=== PATIENT | female | born 1955 | race Two or more races ===

== ENCOUNTER 2025-03-23 10:03 | Observation (INO) | payer MEDICARE, MEDICAID ==
[~2025-03-23] VITALS: Ht 157.5 cm; Wt 68.0 kg
--- NOTE | 2025-03-23 10:48 | ED.PDOC ---
History of Present Illness HPI Comments 69F presents to the ER in a wheelchair w/ no prior MHx associated to the c/c of a fall. Pt reports on being in the bathroom and waking up to the floor w/ a 1.5cm lac on the right side of the forehead. The pt states on only having 1 syncope episode. Pt notes on the fall being unwitnessed. Denies chills, fever, N/V/D, SOB, CP. Denies any other associated symptom's, modifiers, or recent injuries or sick contact at this time. Chief Complaint: Fall Injury Time Seen by MD: 10:45 Reviewed Notes: Nurses Notes, Medications, Allergies Allergies: Coded Allergies: Penicillins (Verified Allergy, Unknown, 03/23/25) Information Source: Patient Mode of Arrival: Wheelchair Severity: Moderate Timing: Minutes Duration: Since onset, Minutes Prehospital treatment: None Past Medical History PAST MEDICAL HISTORY: Denies Surgical History: Denies all surgeries DISPLAY MANAGER History: No Pertinent DISPLAY MANAGER History Family History Family History: Reviewed,noncontributory to illness, Unknown Social History Smoker: Non-Smoker Alcohol: Denies ETOH Use Drugs: Denies Drug Use Lives In: Home Constitutional: denies: chills, diaphoresis, fatigue, fever, malaise, sweats, weakness, others EENTM: denies: blurred vision, double vision, ear bleeding, ear discharge, ear drainage, ear pain, ear ringing, eye pain, eye redness, hearing loss, mouth pain, mouth swelling, nasal discharge, nose bleeding, nose congestion, nose pain, photophobia, tearing, throat pain, throat swelling, voice changes, others Respiratory: denies: cough, hemoptysis, orthopnea, SOB at rest, shortness of breath, SOB with excertion, stridor, wheezing, others Cardiovascular: reports: syncope; denies: chest pain, dizzy spells, diaphoresis, Dyspnea on exertion, edema, irregular heart beat, left arm pain, lightheadedness, palpitations, PND, others Gastrointestinal: denies: abdomen distended, abdominal pain, blood streaked bowels, constipated, diarrhea, dysphagia, difficulty swallowing, hematemesis, melena, nausea, poor appetite, poor fluid intake, rectal bleeding, rectal pain, vomiting, others Genitourinary: denies: abnormal vagina bleeding, burning, dyspareunia, dysuria, flank pain, frequency, hematuria, incontinence, pain, , vagina discharge, urgency, others Neurological: denies: dizziness, fainting, headache, left sided numbness, left sided weakness, numbness, paresthesia, pre-existing deficit, right sided numbness, right sided weakness, seizure, speech problems, tingling, tremors, weakness, others Musculoskeletal: denies: back pain, gout, joint pain, joint swelling, muscle pain, muscle stiffness, neck pain, others Integumetry: denies: bruises, change in color, change in hair/nails, dryness, laceration, lesions, lumps, rash, wounds, others Allergic/Immunocompromised: denies: Difficulty Healing, Frequent Infections, Hives, Itching, others Hematologic/Lymphatic: denies: anemia, blood clots, easy bleeding, easy bruising, swollen glands, others Endocrine: denies: excessive hunger, excessive sweating, excessive thirst, excessive urination, flushing, intolerance to cold, intolerance to heat, unexplained weight gain, unexplained weight loss, others Psychiatric: denies: anxiety, bipolar disorder, depression, hopeless, panic disorder, schizophrenia, sleepless, suicidal, others All Other Systems: Reviewed and Negative Physical Exam General Appearance: No Apparent Distress, Normal HEENT: Normal ENT Inspection, Pharynx Normal, TMs Normal Neck: Full Range of Motion, Non-Tender, Normal, Normal Inspection Respiratory: Chest Non-Tender, Lungs Clear, No Accessory Muscle Use, No Respiratory Distress, Normal Breath Sounds Cardiovascular: No Edema, No JVD, No Murmur, No Gallop, Normal Peripheral Pulses, Regular Rate/Rhythm Breast Exam: Deferred Gastrointestinal: No Organomegaly, Non Tender, No Pulsatile Mass, Normal Bowel Sounds, Soft Genitalia: Deferred Pelvic: Deferred Rectal: Deferred Extremities: No calf tenderness, Normal capillary refill, Normal inspection, Normal range of motion, Non-tender, No pedal edema Musculoskeletal : Apperance: Normal Neurologic: Alert, cloth bolt bander II-XII nml as Tested, No Motor Deficits, Normal Affect, Normal Mood, No Sensory Deficits Cerebellar Function: Normal Reflexes: Normal Skin: Dry, Normal Color, Warm Lymphatic: No Adenopathy Was a procedure done? Was a procedure done?: Yes Sedation Sedation?: No Laceration Repair : Location Forehead Length 2 cm Anesthetic: Lidocaine Laceration Repair Prep: Saline Laceration Repair Wound Comple: epidermis/dermis repair Laceration Repair: Number of sutures, Size (4), Nylon Informed consent obtained: Yes Risks, benefits, and alternati: Yes EKG EKG : Pulse Rate (adult): 80 [place]: Normal Cardiac Rhythm: NSR Block: None Hypertrophy: None ST: Normal Differential Dx Considerations may include: ACS, CVA , viral syndrome, electrolyte abnormality, cardiac arrhythmia X-Ray, Labs, Meds, VS Vital Signs Date Time Temp Pulse Resp B/P (MAP) Pulse Ox O2 Delivery O2 Flow Rate FiO2 03/23/25 15:04 85 16 98 Room Air* 0 21 03/23/25 15:04 85 16 148/84 (105) 98 03/23/25 12:42 76 18 148/87 (107) 95 03/23/25 10:48 80 03/23/25 10:16 80 03/23/25 10:06 97.4 89 20 159/91 96 97.4 Lab Test 03/23/25 13:35 03/23/25 11:50 03/23/25 10:46 Range/Units Troponin I High Sensitivity 3 L 5 3 L </=34 ng/L White Blood Count 9.9 4.4-10.8 10^3/uL Red Blood Count 4.75 4.0-5.20 10^6/uL Hemoglobin 15.1 12.2-16.2 g/dL Hematocrit 44.4 36.0-46.0 % Mean Corpuscular Volume 93.4 80.0-100.0 fL Mean Corpuscular Hemoglobin 31.7 28.0-32.0 pg Mean Corpuscular Hemoglobin Concent 33.9 32.0-36.0 g/dL Red Cell Distribution Width 13.4 11.8-14.3 % Platelet Count 295 140-450 10^3/uL Mean Platelet Volume 7.4 6.9-10.8 fL Neutrophils (%) (Auto) 74.4 37.0-80.0 % Lymphocytes (%) (Auto) 19.2 10.0-50.0 % Monocytes (%) (Auto) 5.0 0.0-12.0 % Eosinophils (%) (Auto) 0.9 0.0-7.0 % Basophils (%) (Auto) 0.5 0.0-2.0 % Neutrophils # (Auto) 7.4 1.6-8.6 10 ^3/uL Lymphocytes # (Auto) 1.9 0.4-5.4 10 ^3/uL Monocytes # (Auto) 0.5 0-1.3 10 ^3/uL Eosinophils # (Auto) 0.1 0-0.8 10 ^3/uL Basophils # (Auto) 0 0-0.2 10 ^3/uL Nucleated Red Blood Cells 0.1 % Prothrombin Time 10.0 9.3-11.8 sec Prothrombin Time INR 0.94 0.9-1.15 Activated Partial Thromboplast Time 30.2 24.5-34.5 SEC Sodium Level 142 136-145 mmol/L Potassium Level 4.2 3.5-5.1 mmol/L Chloride Level 104 98-107 mmol/L Carbon Dioxide Level 25 20-31 mmol/L Anion Gap 13 5-15 Blood Urea Nitrogen 21 9-23 mg/dL Creatinine 0.75 0.550-1.02 mg/dL Glomerular Filtration Rate Calc 87 >90 mL/min BUN/Creatinine Ratio 28.0 H 10.0-20.0 Serum Glucose 145 H 74-106 mg/dL Calcium Level 9.9 8.7-10.4 mg/dL [place] [address] Ph: [phone] DIAGNOSTIC IMAGING Diagnostic Imaging Report : [id number] Signed PATIENT: JUAN VALDEZ ACCT: [id number] UNIT: [id number] : 1955 LOC: ER ROOM / BED: / AGE / SEX: 69 / F ADM STATUS: REG ER SERVICE 1029 ORDERING PHYSICIAN: THEA ESTRADA MD PROCEDURE(s): CXRP - CHEST PORTABLE REASON: syncope ORDER NUMBER(s): [id number], ACCESSION NUMBER(s): [id number] Procedure: XY CHEST PORTABLE History: syncope Comparison: None Technique: Single view of the chest. Findings: The lung parenchyma is clear. No pleural effusion. Cardiac silhouette is mildly enlarged. Impression: 1. No acute cardiopulmonary disease. ATED BY: HELADIO NUÑEZ MD DICTATED DATE/TIME: 03/23/251058 SIGNED BY: HELADIO NUÑEZ MD SIGNED DATE/TIME: 03/23/251058 CC: [place] [address] Ph: [phone] DIAGNOSTIC IMAGING Diagnostic Imaging Report : [id number] Signed PATIENT: JUAN VALDEZ ACCT: [id number] UNIT: [id number] : 1955 LOC: ER ROOM / BED: / AGE / SEX: 69 / F ADM STATUS: REG ER SERVICE 102 ORDERING PHYSICIAN: THEA ESTRADA MD PROCEDURE(s): HWOCT - HEAD WITHOUT CONTRAST REASON: syncope ORDER NUMBER(s): [id number], ACCESSION NUMBER(s): [id number] EXAM: CT HEAD WITHOUT CONTRAST INDICATION: syncope TECHNIQUE: CT of the head without intravenous contrast. Radiation Dose Information: CT Dose: CTDI volume is 55.7 mGy. Dose-length product is 1207.41 mGy*cm The dose indicators for CT are the volume Computed Tomography (CT) Dose Index (CTDIvol) and the Dose Length Product (DLP), and are measured in units of mGy and mGy-cm, respectively. These indicators are not patient dose, but values generated from the CT scanner acquisition factors. The report includes radiation exposure data for exposures received during this examination. COMPARISON: None FINDINGS: There is no evidence of acute intracranial hemorrhage, extra-axial collection, mass effect, midline shift, herniation or hydrocephalus. The ventricles, sulci and cisterns are age appropriate. The hutchinson-white differentiation is intact. Remote infarct within the right ash. Remote bilateral basal ganglia infarcts versus prominent perivascular spaces. Patchy periventricular and subcortical white matter hypoattenuation is nonspecific but may be related to small vessel ischemic disease. The visualized paranasal sinuses and mastoid air cells are clear. Right frontal scalp swelling. No underlying fracture. IMPRESSION: No acute intracranial abnormality. ATED BY: ARCELIA DENNIS MD DICTATED DATE/TIME: 03/23/25 1100 SIGNED BY: ARCELIA DENNIS MD SIGNED DATE/TIME: 03/23/25 1100 CC: Images Reviewed?: Images reviewed and evaluated by me Time of 1ST Reevaluation: 11:15 Reevaluation 1ST: Unchanged Patient Education/Counseling: Diagnosis, Treatment, Prognosis Family Education/Counseling: No Family Present SEPSIS Sepsis Screen Date sepsis recognized/suspect: Mar 23, 2025 Time Sepsis recognized/suspect: 1009 Recent Procedure: No On Antibiotic Therapy: No Respiratory Rate >20: No Heart Rate >90: Yes Temp<36 C (96.8 F) or >38.3 C: No SBP <90 or MAP <65 mmHG: No New Acute Mental Status Change: No Is the patient on CPAP, BIPAP,: No Physician Orders Electrocardigram (03/23/25 10:23) Head Without Contrast (03/23/25 10:29) Urinalysis (03/23/25 10:29) Chest Portable (03/23/25 10:29) Admit (03/23/25:26) Code Status (03/23/25:) 2 Gm Sodium Diet (03/23/25 Dinner) Sodium Chloride 0.9% (03/23/25 17:30) Hydrocodone-Acet 5/325mg Tab ([place] 5/32 (03/23/25 17:30) Ondansetron Hcl (Zofran) (03/23/25 17:30) Docusate Sodium Capsule (Colace Capsule) (03/23/25 17:30) Complete Blood Count (03/24/25 04:00) Comprehensive Metabolic Panel (03/24/25 04:00) Echo 2d Mode Cardiac Dop (03/23/25:26) Condition: Fair (03/23/25:) Acetaminophen Tablet (Tylenol Tablet) (03/23/25 17:30) Enoxaparin Sodium (Lovenox) (03/24/25 10:00) Nitroglycerin Sublingual (Ntrostat Subli (03/23/25 17:30) Stat Ekg For Chest Pain (03/23/25:) Notify Of Changes From Base (03/23/25 17:) Cyber Crime Investigator For 24 Hours (03/23/25:26) Emergency Dysrhythmia Protocol (03/23/25:26) Rhythm Strips Once Every Shift (03/23/25:26) Oxygen By Nasal Cannula (03/23/25 17:26) *Consult Dr. Arnel Wilhelm (03/23/25 17:32) Morphine Sulfate Injection (03/23/25 17:45) Morphine Sulfate Injection (03/23/25 17:45) Vital Signs Date Time Temp Pulse Resp B/P (MAP) Pulse Ox O2 Delivery O2 Flow Rate FiO2 03/23/25 15:04 85 16 98 Room Air* 0 21 03/23/25 15:04 85 16 148/84 (105) 98 03/23/25 12:42 76 18 148/87 (107) 95 03/23/25 10:48 80 03/23/25 10:16 80 03/23/25 10:06 97.4 89 20 159/91 96 97.4 Laboratory Tests Test 03/23/25 10:46 White Blood Count 9.9 10^3/uL (4.4-10.8) Departure 1 Departure Time of Disposition: 17:58 (Patient presented with syncope today and should be admitted. Data: 1. I ordered and reviewed the result of at least 3 labs including a CBC, BMP, and troponin. 2. I independently interpreted the following tests: EKG which shows a sinus arrhythmia _ and a chest x-ray which shows benign chest and a CT head which shows benign brain.Risk:This patient has a high risk of morbidity due to further diagnostic testing or treatment and may suffer from an acute cardiac, neurologic, or infectious disorder. Rationale: Patient should be admitted to the hospital for further management.) Impression: Primary Impression: Syncope and collapse Additional Impression: Facial laceration Disposition: ADMITTED INPATIENT Admit to: Tele Condition: Serious Critical Care Note Critical Care Time?: Yes Critical care comment: Syncope concern for CVA Authorized and Performed by: Thea Estrada MD Total critical care time: Approximately 38 minutes Due to a high probability of clinically significant, life threatening deterioration, the patient required my highest level of preparedness to intervene emergently and I personally spent this critical care time directly and personally managing the patient. This critical care time included obtaining a history; examining the patient; pulse oximetry; ordering and review of studies; arranging urgent treatment with development of a management plan; evaluation of patient's response to treatment; frequent reassessment; and, discussions with other providers. This critical care time was performed to assess and manage the high probability of imminent, life-threatening deterioration that could result in multi-organ failure. It was exclusive of separately billable procedures and treating other patients and teaching time. Please see my other sections and the rest of the note for further information on patient assessment and treatment. Stability Stability form required: No I personally scribed for THEA ESTRADA MD ([email or web address]) on 03/23/25 at 10:48. Electronically submitted by Skinny Valles ([email or web address]). I personally scribed for THEA ESTRADA MD ([email or web address]) on 03/23/25 at 11:37. Electronically submitted by Rylan Westbrook ([email or web address]). THEA ESTRADA MD Mar 23, 2025 10:48
[2025-03-23 10:55] LABS: Hematocrit 44.4 % (36.0-46.0); Hemoglobin 15.1 g/dL (12.2-16.2); Mean Corpuscular Hemoglobin 31.7 pg (28.0-32.0); Mean Corpuscular Volume 93.4 fL (80.0-100.0); Nucleated Red Blood Cells % 0.1 %
--- NOTE | 2025-03-23 11:01 | DVH ---
Procedure: XY CHEST PORTABLE History: syncope Comparison: None Technique: Single view of the chest. Findings: The lung parenchyma is clear. No pleural effusion. Cardiac silhouette is mildly enlarged. Impression: 1. No acute cardiopulmonary disease.
--- NOTE | 2025-03-23 11:02 | DVH ---
EXAM: CT HEAD WITHOUT CONTRAST INDICATION: syncope TECHNIQUE: CT of the head without intravenous contrast. Radiation Dose Information: CT Dose: CTDI volume is 55.7 mGy. Dose-length product is 1207.41 mGy*cm The dose indicators for CT are the volume Computed Tomography (CT) Dose Index (CTDIvol) and the Dose Length Product (DLP), and are measured in units of mGy and mGy-cm, respectively. These indicators are not patient dose, but values generated from the CT scanner acquisition factors. The report includes radiation exposure data for exposures received during this examination. COMPARISON: None FINDINGS: There is no evidence of acute intracranial hemorrhage, extra-axial collection, mass effect, midline s hift, herniation or hydrocephalus. The ventricles, sulci and cisterns are age appropriate. The hutchinson-white differentiation is intact. Remote infarct within the right ash. Remote bilateral basa l ganglia infarcts versus prominent perivascular spaces. Patchy periventricular and subcortical white matter hypoattenuation is nonspecific but may be related to small vessel ischemic disease. The visualized paranasal sinuses and mastoid air cells are clear. Right frontal scalp swelling. No underlying fracture. IMPRESSION: No acute intracranial abnormality.
[2025-03-23 11:06] LABS: Chloride 104 mmol/L (98-107); Potassium 4.2 mmol/L (3.5-5.1); Sodium 142 mmol/L (136-145)
[2025-03-23 11:07] LABS: Anion Gap 13 (5-15); Calcium 9.9 mg/dL (8.7-10.4); Carbon Dioxide 25 mmol/L (20-31)
[2025-03-23 11:12] LABS: BUN/Creatinine Ratio 28.0 (10.0-20.0); Blood Urea Nitrogen 21 mg/dL (9-23); Glucose 145 mg/dL (74-106); INR 0.94 (0.9-1.15); Partial Thromboplastin Time 30.2 SEC (24.5-34.5); Prothrombin Time 10.0 sec (9.3-11.8)
[2025-03-23 15:04] VITALS: PULSE 85; RESP 16; O2SAT 98
[2025-03-23] MEDS ORDERED: DOCUSATE SOD 100 MG CAP PO PRN (17:30)
[2025-03-23] MEDS ORDERED: HYDROcodone-ACET 5/325MG TAB PO PRN (17:30)
[2025-03-23] MEDS ORDERED: ACETAMINOPHEN 325 MG TAB PO PRN (17:30)
[2025-03-23] MEDS ORDERED: NITROGLYCERIN 0.4 MG SL TAB SL PRN (17:30)
--- NOTE | 2025-03-23 17:32 | DVHHP2 ---
Allergies: Coded Allergies: Penicillins (Verified Allergy, Unknown, 03/23/25) Vital Signs Vital Signs Date Time Temp Pulse Resp B/P (MAP) Pulse Ox O2 Delivery O2 Flow Rate FiO2 03/23/25 15:04 85 16 98 Room Air* 0 21 03/23/25 15:04 148/84 (105) 03/23/25 10:06 97.4 97.4 SEPSIS Sepsis Screen Date sepsis recognized/suspect: Mar 23, 2025 Time Sepsis recognized/suspect: 1510 Recent Procedure: No On Antibiotic Therapy: No Respiratory Rate >20: No Heart Rate >90: No Temp<36 C (96.8 F) or >38.3 C: No SBP <90 or MAP <65 mmHG: No New Acute Mental Status Change: No Is the patient on CPAP, BIPAP,: No Physician Orders Electrocardigram (03/23/25 10:23) Head Without Contrast (03/23/25 10:29) Urinalysis (03/23/25 10:29) Chest Portable (03/23/25 10:29) Admit (03/23/25 17:26) Code Status (03/23/25 17:26) 2 Gm Sodium Diet (03/23/25 Dinner) 0.9% Ns 1000 Ml (03/23/25 17:30) Hydrocodone-Acet 5/325mg Tab ([place] 32 (03/23/25 17:30) Ondansetron Hcl (Zofran) (03/23/25 17:30) Docusate Sodium Capsule (Colace Capsule) (03/23/25 17:30) Complete Blood Count (03/24/25 04:00) Comprehensive Metabolic Panel (03/24/25 04:00) Echo 2d Mode Cardiac Dop (03/23/25 17:26) Condition: Fair (03/23/25 17:26) Acetaminophen Tablet (Tylenol Tablet) (03/23/25 17:30) Vital Signs Date Time Temp Pulse Resp B/P (MAP) Pulse Ox O2 Delivery O2 Flow Rate FiO2 03/23/25 15:04 85 16 98 Room Air* 0 21 03/23/25 15:04 85 16 148/84 (105) 98 03/23/25 12:42 76 18 148/87 (107) 95 03/23/25 10:48 80 03/23/25 10:16 80 10/8/25 10:06 97.4 89 20 159/91 96 97.4 Laboratory Tests Test 03/23/25 10:46 White Blood Count 9.9 10^3/uL (4.4-10.8) Results Labs Test 03/23/25 13:35 03/23/25 10:46 Range/Units Troponin I High Sensitivity 3 L </=34 ng/L White Blood Count 9.9 4.4-10.8 10^3/uL Red Blood Count 4.75 4.0-5.20 10^6/uL Hemoglobin 15.1 12.2-16.2 g/dL Hematocrit 44.4 36.0-46.0 % Mean Corpuscular Volume 93.4 80.0-100.0 fL Mean Corpuscular Hemoglobin 31.7 28.0-32.0 pg Mean Corpuscular Hemoglobin Concent 33.9 32.0-36.0 g/dL Red Cell Distribution Width 13.4 11.8-14.3 % Platelet Count 295 140-450 10^3/uL Mean Platelet Volume 7.4 6.9-10.8 fL Neutrophils (%) (Auto) 74.4 37.0-80.0 % Lymphocytes (%) (Auto) 19.2 10.0-50.0 % Monocytes (%) (Auto) 5.0 0.0-12.0 % Eosinophils (%) (Auto) 0.9 0.0-7.0 % Basophils (%) (Auto) 0.5 0.0-2.0 % Neutrophils # (Auto) 7.4 1.6-8.6 10 ^3/uL Lymphocytes # (Auto) 1.9 0.4-5.4 10 ^3/uL Monocytes # (Auto) 0.5 0-1.3 10 ^3/uL Eosinophils # (Auto) 0.1 0-0.8 10 ^3/uL Basophils # (Auto) 0 0-0.2 10 ^3/uL Nucleated Red Blood Cells 0.1 % Prothrombin Time 10.0 9.3-11.8 sec Prothrombin Time INR 0.94 0.9-1.15 Activated Partial Thromboplast Time 30.2 24.5-34.5 SEC Sodium Level 142 136-145 mmol/L Potassium Level 4.2 3.5-5.1 mmol/L Chloride Level 104 98-107 mmol/L Carbon Dioxide Level 25 20-31 mmol/L Anion Gap 13 5-15 Blood Urea Nitrogen 21 9-23 mg/dL Creatinine 0.75 0.550-1.02 mg/dL Glomerular Filtration Rate Calc 87 >90 mL/min BUN/Creatinine Ratio 28.0 H 10.0-20.0 Serum Glucose 145 H 74-106 mg/dL Calcium Level 9.9 8.7-10.4 mg/dL MOO RICKETTS NP Mar 23, 2025 17:32
--- NOTE | 2025-03-23 17:37 | DVHHP2 ---
Admitting Diagnosis: Syncope History of Present Illness Gwendolyn Lewis experienced a syncopal episode, with her daughter suggesting a recently prescribed sleep aid may have contributed by causing weakness. Her medical history includes a recent stroke, diabetes, hypertension, and hyperlipidemia, with previous medication non-compliance. She recently enrolled at [facility] and lives with her daughter who provides support. Cardiovascular and respiratory exams were normal with no acute distress noted. Chief Complaint Syncopal episode Problem-Based History of Present Illness Syncope: Patient experienced a syncopal episode that prompted current admission. According to her daughter, the patient possibly felt very weak from a recently prescribed sleep aid medication, which may have contributed to the episode. Stroke: Patient states she had a stroke recently. She reports that previously she had not been compliant with her medications. Diabetes: Patient has a past medical history of diabetes. Hypertension: Patient has a past medical history of hypertension. Hyperlipidemia: Patient has a past medical history of hyperlipidemia. Medical History - Recent stroke - Diabetes - Hypertension - Hyperlipidemia Social History - Living Situation: Lives with daughter who provides support and advocacy for her care - Healthcare Setting: Currently new resident at [facility] Review of Systems General: Positive for weakness. Medications and Supplements - Sleep aid - Recently prescribed. Patient's daughter suspects patient possibly felt very weak from this medication. - Medications for stroke, diabetes, hypertension, and hyperlipidemia - Previously not compliant with medications. Focused Physical Exam: General: No acute distress. Cardiovascular: Heart rate and rhythm are normal. No murmurs, gallops, or rubs. Respiratory: No signs of respiratory distress. Past Medical History Diabetes CVA HTN HLD Past Surgical History not pertinent Family History Unknown Social History Smoker: Non-Smoker Alcohol: Denies ETOH Use Drugs: Denies Drug Use Lives In: Home Constitutional: denies: chills, diaphoresis, fatigue, fever, malaise, sweats, weakness, others EENTM: denies: blurred vision, double vision, ear bleeding, ear discharge, ear drainage, ear pain, ear ringing, eye pain, eye redness, hearing loss, mouth pain, mouth swelling, nasal discharge, nose bleeding, nose congestion, nose pain, photophobia, tearing, throat pain, throat swelling, voice changes, others Respiratory: denies: cough, hemoptysis, orthopnea, SOB at rest, shortness of breath, SOB with excertion, stridor, wheezing, others Cardiovascular: reports: syncope; denies: chest pain, dizzy spells, diaphoresis, Dyspnea on exertion, edema, irregular heart beat, left arm pain, lightheadedness, palpitations, PND, others Gastrointestinal: denies: abdomen distended, abdominal pain, blood streaked bowels, constipated, diarrhea, dysphagia, difficulty swallowing, hematemesis, melena, nausea, poor appetite, poor fluid intake, rectal bleeding, rectal pain, vomiting, others Genitourinary: denies: abnormal vagina bleeding, burning, dyspareunia, dysuria, flank pain, frequency, hematuria, incontinence, pain, , vagina discharge, urgency, others Neurological: denies: dizziness, fainting, headache, left sided numbness, left sided weakness, numbness, paresthesia, pre-existing deficit, right sided numbness, right sided weakness, seizure, speech problems, tingling, tremors, weakness, others Musculoskeletal: denies: back pain, gout, joint pain, joint swelling, muscle pain, muscle stiffness, neck pain, others Integumetry: denies: bruises, change in color, change in hair/nails, dryness, laceration, lesions, lumps, rash, wounds, others Allergic/Immunocompromised: denies: Difficulty Healing, Frequent Infections, Hives, Itching, others Hematologic/Lymphatic: denies: anemia, blood clots, easy bleeding, easy bruising, swollen glands, others Endocrine: denies: excessive hunger, excessive sweating, excessive thirst, excessive urination, flushing, intolerance to cold, intolerance to heat, unexplained weight gain, unexplained weight loss, others Psychiatric: denies: anxiety, bipolar disorder, depression, hopeless, panic disorder, schizophrenia, sleepless, suicidal, others All Other Systems: Reviewed and Negative Allergies: Coded Allergies: Penicillins (Verified Allergy, Unknown, 03/23/25) Allergies PCN Vital Signs Vital Signs Date Time Temp Pulse Resp B/P (MAP) Pulse Ox O2 Delivery O2 Flow Rate FiO2 03/23/25 15:04 85 16 98 Room Air* 0 21 03/23/25 15:04 148/84 (105) 03/23/25 10:06 97.4 97.4 SEPSIS Sepsis Screen Date sepsis recognized/suspect: Mar 23, 2025 Time Sepsis recognized/suspect: 1510 Recent Procedure: No On Antibiotic Therapy: No Respiratory Rate >20: No Heart Rate >90: No Temp<36 C (96.8 F) or >38.3 C: No SBP <90 or MAP <65 mmHG: No New Acute Mental Status Change: No Is the patient on CPAP, BIPAP,: No Physician Orders Electrocardigram (03/23/25 10:23) Head Without Contrast (03/23/25 10:29) Urinalysis (03/23/25 10:29) Chest Portable (03/23/25 10:29) Admit (03/23/25:) Code Status (03/23/25:) 2 Gm Sodium Diet (03/23/25 Dinner) 0.9% Ns 1000 Ml (03/23/25 17:30) Hydrocodone-Acet 5/325mg Tab ([place] (03/23/25 17:30) Ondansetron Hcl (Zofran) (03/23/25 17:30) Docusate Sodium Capsule (Colace Capsule) (03/23/25 17:30) Complete Blood Count (03/24/25 04:00) Comprehensive Metabolic Panel (03/24/25 04:00) Echo 2d Mode Cardiac Dop (03/23/25:) Condition: Fair (03/23/25:) Acetaminophen Tablet (Tylenol Tablet) (03/23/25 17:30) Vital Signs Date Time Temp Pulse Resp B/P (MAP) Pulse Ox O2 Delivery O2 Flow Rate FiO2 03/23/25 15:04 85 16 98 Room Air* 0 21 03/23/25 15:04 85 16 148/84 (105) 98 03/23/25 12:42 76 18 148/87 (107) 95 03/23/25 10:48 80 03/23/25 10:16 80 03/23/25 10:06 97.4 89 20 159/91 96 97.4 Laboratory Tests Test 03/23/25 10:46 White Blood Count 9.9 10^3/uL (4.4-10.8) Results Labs Test 03/23/25 13:35 03/23/25 10:46 Range/Units Troponin I High Sensitivity 3 L </=34 ng/L White Blood Count 9.9 4.4-10.8 10^3/uL Red Blood Count 4.75 4.0-5.20 10^6/uL Hemoglobin 15.1 12.2-16.2 g/dL Hematocrit 44.4 36.0-46.0 % Mean Corpuscular Volume 93.4 80.0-100.0 fL Mean Corpuscular Hemoglobin 31.7 28.0-32.0 pg Mean Corpuscular Hemoglobin Concent 33.9 32.0-36.0 g/dL Red Cell Distribution Width 13.4 11.8-14.3 % Platelet Count 295 140-450 10^3/uL Mean Platelet Volume 7.4 6.9-10.8 fL Neutrophils (%) (Auto) 74.4 37.0-80.0 % Lymphocytes (%) (Auto) 19.2 10.0-50.0 % Monocytes (%) (Auto) 5.0 0.0-12.0 % Eosinophils (%) (Auto) 0.9 0.0-7.0 % Basophils (%) (Auto) 0.5 0.0-2.0 % Neutrophils # (Auto) 7.4 1.6-8.6 10 ^3/uL Lymphocytes # (Auto) 1.9 0.4-5.4 10 ^3/uL Monocytes # (Auto) 0.5 0-1.3 10 ^3/uL Eosinophils # (Auto) 0.1 0-0.8 10 ^3/uL Basophils # (Auto) 0 0-0.2 10 ^3/uL Nucleated Red Blood Cells 0.1 % Prothrombin Time 10.0 9.3-11.8 sec Prothrombin Time INR 0.94 0.9-1.15 Activated Partial Thromboplast Time 30.2 24.5-34.5 SEC Sodium Level 142 136-145 mmol/L Potassium Level 4.2 3.5-5.1 mmol/L Chloride Level 104 98-107 mmol/L Carbon Dioxide Level 25 20-31 mmol/L Anion Gap 13 5-15 Blood Urea Nitrogen 21 9-23 mg/dL Creatinine 0.75 0.550-1.02 mg/dL Glomerular Filtration Rate Calc 87 >90 mL/min BUN/Creatinine Ratio 28.0 H 10.0-20.0 Serum Glucose 145 H 74-106 mg/dL Calcium Level 9.9 8.7-10.4 mg/dL Primary Diagnosis Vital Signs Date Time Temp Pulse Resp B/P (MAP) Pulse Ox O2 Delivery O2 Flow Rate FiO2 03/23/25 15:04 85 16 98 Room Air* 0 21 03/23/25 15:04 85 16 148/84 (105) 98 03/23/25 12:42 76 18 148/87 (107) 95 03/23/25 10:48 80 03/23/25 10:16 80 03/23/25 10:06 97.4 89 20 159/91 96 97.4 Lab Test 03/23/25 13:35 03/23/25 11:50 03/23/25 10:46 Range/Units Troponin I High Sensitivity 3 L 5 3 L </=34 ng/L White Blood Count 9.9 4.4-10.8 10^3/uL Red Blood Count 4.75 4.0-5.20 10^6/uL Hemoglobin 15.1 12.2-16.2 g/dL Hematocrit 44.4 36.0-46.0 % Mean Corpuscular Volume 93.4 80.0-100.0 fL Mean Corpuscular Hemoglobin 31.7 28.0-32.0 pg Mean Corpuscular Hemoglobin Concent 33.9 32.0-36.0 g/dL Red Cell Distribution Width 13.4 11.8-14.3 % Platelet Count 295 140-450 10^3/uL Mean Platelet Volume 7.4 6.9-10.8 fL Neutrophils (%) (Auto) 74.4 37.0-80.0 % Lymphocytes (%) (Auto) 19.2 10.0-50.0 % Monocytes (%) (Auto) 5.0 0.0-12.0 % Eosinophils (%) (Auto) 0.9 0.0-7.0 % Basophils (%) (Auto) 0.5 0.0-2.0 % Neutrophils # (Auto) 7.4 1.6-8.6 10 ^3/uL Lymphocytes # (Auto) 1.9 0.4-5.4 10 ^3/uL Monocytes # (Auto) 0.5 0-1.3 10 ^3/uL Eosinophils # (Auto) 0.1 0-0.8 10 ^3/uL Basophils # (Auto) 0 0-0.2 10 ^3/uL Nucleated Red Blood Cells 0.1 % Prothrombin Time 10.0 9.3-11.8 sec Prothrombin Time INR 0.94 0.9-1.15 Activated Partial Thromboplast Time 30.2 24.5-34.5 SEC Sodium Level 142 136-145 mmol/L Potassium Level 4.2 3.5-5.1 mmol/L Chloride Level 104 98-107 mmol/L Carbon Dioxide Level 25 20-31 mmol/L Anion Gap 13 5-15 Blood Urea Nitrogen 21 9-23 mg/dL Creatinine 0.75 0.550-1.02 mg/dL Glomerular Filtration Rate Calc 87 >90 mL/min BUN/Creatinine Ratio 28.0 H 10.0-20.0 Serum Glucose 145 H 74-106 mg/dL Calcium Level 9.9 8.7-10.4 mg/dL syncope Plan Plan will be to obtain orthostatic vitals. Rule out infection. Monitor on telemetry floor Echocardiogram. Cardiology consult. Plan discussed with: Daughter Code Visit Code Visit Total Time (mins): 45 MOO RICKETTS NP Mar 23, 2025 17:37
[2025-03-23] MEDS ORDERED: MORPHINE SULFATE 4 MG/ML SYR/VIAL IV PRN (17:45)
--- NOTE | 2025-03-23 18:33 | DVHINCON2 ---
Date of service: Mar 23, 2025 History of Present Illness HPI Patient is a 69-year-old female who presented to the hospital after syncopal episode. She mentions that she found herself on the floor of the bathroom. Does not recall what happened. Denies any symptoms/signs prior to the episode. Denies any chest pain/shortness of breath/dizziness/cold or warm feeling after the episode. She also mentions that she was started on a new medicine for sleep aid the night before (by her new PCP). Does not recall the name of the sleeping aid medicine. She mentions that she did have CVA in September 2024 for which was in rehab for around a month. Her comorbidities also include hypertension and hyperlipidemia. Reportedly, the patient has history of noncompliance. Cardiology is involved for cardiac aspects of care. While in emergency room, she had stitches to the right forehead. Past Medical History Others Past medical history includes hypertension, hyperlipidemia and history of CVA (in September 2024). Chart mentions history of diabetes mellitus but patient herself denies such a history. There is a reported history of noncompliance. She is morbidly obese. Smoker: No Hx (Negative) Lives with: With family Review of Systems Constitutional: No symptom reported Ears, Nose, & Throat: No symptom reported Eyes: No symptom reported Pulmonary/Respiratory: Cough Cardiovascular: No symptom reported All Other Systems Fourteen point review of system was performed. Relevant findings as per above and as per HPI. Otherwise negative. H&P Exam Vital Signs Vital Signs Date Time Temp Pulse Resp B/P (MAP) Pulse Ox O2 Delivery O2 Flow Rate FiO2 03/23/25 15:04 85 16 98 Room Air* 0 21 03/23/25 15:04 148/84 (105) 03/23/25 10:06 97.4 97.4 General Appeara: Obese Eye Exam: bilateral eye PERRL Pulmonary/Respiratory: Normal inspection Cardiovascular/Chest: Normal inspection, Regular rate Peripheral Pulses: 2+ carotid (R), 2+ carotid (L) Abdominal Exam: Normal bowel sounds, Soft Neuro/Mental St: Alert, Oriented Appearance: Appropriate appearance Eye contact/ Speech: Cooperative Labs/Xrays Labs Test 03/23/25 13:35 03/23/25 10:46 Range/Units Troponin I High Sensitivity 3 L </=34 ng/L White Blood Count 9.9 4.4-10.8 10^3/uL Red Blood Count 4.75 4.0-5.20 10^6/uL Hemoglobin 15.1 12.2-16.2 g/dL Hematocrit 44.4 36.0-46.0 % Mean Corpuscular Volume 93.4 80.0-100.0 fL Mean Corpuscular Hemoglobin 31.7 28.0-32.0 pg Mean Corpuscular Hemoglobin Concent 33.9 32.0-36.0 g/dL Red Cell Distribution Width 13.4 11.8-14.3 % Platelet Count 295 140-450 10^3/uL Mean Platelet Volume 7.4 6.9-10.8 fL Neutrophils (%) (Auto) 74.4 37.0-80.0 % Lymphocytes (%) (Auto) 19.2 10.0-50.0 % Monocytes (%) (Auto) 5.0 0.0-12.0 % Eosinophils (%) (Auto) 0.9 0.0-7.0 % Basophils (%) (Auto) 0.5 0.0-2.0 % Neutrophils # (Auto) 7.4 1.6-8.6 10 ^3/uL Lymphocytes # (Auto) 1.9 0.4-5.4 10 ^3/uL Monocytes # (Auto) 0.5 0-1.3 10 ^3/uL Eosinophils # (Auto) 0.1 0-0.8 10 ^3/uL Basophils # (Auto) 0 0-0.2 10 ^3/uL Nucleated Red Blood Cells 0.1 % Prothrombin Time 10.0 9.3-11.8 sec Prothrombin Time INR 0.94 0.9-1.15 Activated Partial Thromboplast Time 30.2 24.5-34.5 SEC Sodium Level 142 136-145 mmol/L Potassium Level 4.2 3.5-5.1 mmol/L Chloride Level 104 98-107 mmol/L Carbon Dioxide Level 25 20-31 mmol/L Anion Gap 13 5-15 Blood Urea Nitrogen 21 9-23 mg/dL Creatinine 0.75 0.550-1.02 mg/dL Glomerular Filtration Rate Calc 87 >90 mL/min BUN/Creatinine Ratio 28.0 H 10.0-20.0 Serum Glucose 145 H 74-106 mg/dL Calcium Level 9.9 8.7-10.4 mg/dL Assessment/Plan Plan Patient is a 69-year-old female who presented to the hospital after syncopal episode. She mentions that she found herself on the floor of the bathroom. Does not recall what happened. Denies any symptoms/signs prior to the episode. Denies any chest pain/shortness of breath/dizziness/cold or warm feeling after the episode. She also mentions that she was started on a new medicine for sleep aid the night before (by her new PCP). Does not recall the name of the sleeping aid medicine. She mentions that she did have CVA in September 2024 for which was in rehab for around a month. Her comorbidities also include hypertension and hyperlipidemia. Reportedly, the patient has history of noncompliance. Cardiology is involved for cardiac aspects of care. While in emergency room, she had stitches to the right forehead. Lying flat in bed and not in acute distress. Stitches in the right forehead is covered by dressing. Bruises to the forehead is seen. No JVD. Mucosa is pink and wet. No carotid bruit. No goiter. Not using accessory muscles of breathing. Lungs are clear to auscultation. Cardiac: Regular, no thrill/gall op. Abdomen is soft. There was no hepatomegaly/mass. Bowel sound is positive. Extremities do not reveal edema. Past medical history includes hypertension, hyperlipidemia and history of CVA (in September 2024). Chart mentions history of diabetes mellitus but patient herself denies such a history. There is a reported history of noncompliance. She is morbidly obese. Creatinine: 0.75 Potassium: 4.2 Troponin (high sensitive): 3 - 5 - 3 Chest x-ray revealed: Impression: 1. No acute cardiopulmonary disease. CT of the head revealed: IMPRESSION: No acute intracranial abnormality. EKG revealed sinus rhythm with nonspecific ST-T changes Tele reveals sinus rhythm Patient is a 69-year-old female who had an episode of loss of consciousness (found herself on the floor) with bruises to the forehead. Presentation is in favor of an episode of syncope. The patient was started on new sleeping aid the night before which could have contributed to the clinical picture. It is of note that the patient did have CVA few months back. Syncope Forehead laceration, status post stitches Hypertension Hyperlipidemia Status post CVA Morbidly obese Baseline poor functional capacity Cardiac suggestion for management: Manage on telemetry Follow-up electrolytes and kidney function tests and correct abnormalities Keep potassium above 4 and magnesium above 2 Request for echocardiogram Request for D-dimer, (if abnormal, consider venous Doppler lower extremities/CT angio of the lungs) Long-term monitor can be arranged as outpatient Consider Neurology evaluation Further evaluation and management depends on the above and clinical course Thank you for consultation A total of 75 minutes was spent reviewing the patient record, examining the patient, making a diagnostic and therapeutic plan, discussing this plan with medical personnel, following up on diagnostic studies and following the patient for clinical stability excluding any and all procedures. At least 50% of this time was spent in direct, [id number] contact. Thank you for allowing me to participate in this patient's care. Further recommendations will depend on patient's clinical course. Please do not hesitate to contact me if you have any questions or concerns. This medical document was created using electronic medical record system with [employer] computerized dictation system. Although this document has been carefully reviewed, there may still be some phonetic and typographical errors. These areas are purely typographical due to the imperfection of the software programs, and do not reflect any compromise in the patient's medical care. Plan discussed with: Patient, Other (nurse) GISELE ALMONTE MD Mar 23, 2025 18:33
[2025-03-23] MEDS: SODIUM CHLORIDE 0.9% 1,000 ML IV SCH (19:16)
[2025-03-23 19:28] LABS: Urine Protein, UAD Negative (Negative)
[2025-03-23 21:17] VITALS: BP 143/83; PULSE 89; RESP 16; TEMP 97.7; O2SAT 95
[2025-03-23 21:30] VITALS: BP 143/83; PULSE 89; RESP 16; TEMP 97.7; O2SAT 95
[2025-03-23] MEDS: MORPHINE SULFATE 4 MG/ML SYR/VIAL IV PRN (22:47)
[2025-03-24] VITALS (8 sets, daily range): BP systolic 139–167; BP diastolic 69–92; PULSE 68–97; RESP 16–19; TEMP 36.9; O2SAT 90–94
[2025-03-24 06:48] LABS: Hematocrit 38.6 % (36.0-46.0); Hemoglobin 13.2 g/dL (12.2-16.2); Mean Corpuscular Hemoglobin 31.9 pg (28.0-32.0); Mean Corpuscular Volume 93.3 fL (80.0-100.0); Nucleated Red Blood Cells % 0.1 %
[2025-03-24 06:56] LABS: Alanine Aminotransferase 20 U/L (7-40); Alkaline Phosphatase 99 U/L (46-116); Anion Gap 11 (5-15); BUN/Creatinine Ratio 16.7 (10.0-20.0); Calcium 9.2 mg/dL (8.7-10.4); Carbon Dioxide 26 mmol/L (20-31); Chloride 103 mmol/L (98-107); Potassium 3.8 mmol/L (3.5-5.1); Sodium 140 mmol/L (136-145); Total Protein 7.0 g/dL (5.7-8.2)
[2025-03-24 06:57] LABS: Albumin 4.1 g/dL (3.2-4.8); Bilirubin, Total 0.7 mg/dL (0.2-1.0)
[2025-03-24 06:58] LABS: Blood Urea Nitrogen 9 mg/dL (9-23); Glucose 134 mg/dL (74-106)
--- NOTE | 2025-03-24 07:47 | DVHPN2 ---
Progress Note - Dictate Date Seen: Mar 24, 2025 Medical Necessity Reason Pt with a Central, PICC or Fol: No vital signs Vital Sign Date Time Temp Pulse Resp B/P (MAP) Pulse Ox O2 Delivery O2 Flow Rate FiO2 03/24/25 05:00 98.1 96 16 144/77 (99) 90 98.1 03/23/25 21:17 Room Air* 0 21 Total Intake and Output 03/23/25 03/23/25 03/24/25 15:00 23:00 07:00 Intake Total 0 ml Balance 0 ml medications Current Medications Medications Dose Ordered Sig/Veronica Route Start Time Stop Time Status Last Admin Dose Admin Sodium Chloride 1,000 ml @ 60 mls/hr [id number] IV 03/23/25 17:30 03/23/25 19:16 60 MLS/HR Acetaminophen/ Hydrocodone Bitart 1 tab Q4HP PRN PO 03/23/25 17:30 Ondansetron HCl 4 mg Q4HP PRN IV 03/23/25 17:30 Docusate Sodium 100 mg BIDPRN PRN PO 03/23/25 17:30 Acetaminophen 650 mg Q6HP PRN PO 03/23/25 17:30 Morphine Sulfate 2 mg Q4HPRN PRN IV 03/23/25 17:45 03/24/25 03:14 2 MG Enoxaparin Sodium 40 mg DAILY SC 03/24/25 10:00 Nitroglycerin 0.4 mg Q5MINP PRN SL 03/23/25 17:30 Morphine Sulfate 2 mg Q30M PRN IV 03/23/25 17:45 laboratory and microbiology Laboratory Tests 03/24/25 04:58 Test 03/24/25 04:58 Range/Units Serum Glucose 134 H 74-106 mg/dL Assessment/Plan Patient is a 69-year-old female who presented to the hospital after syncopal episode. She mentions that she found herself on the floor of the bathroom. Does not recall what happened. Denies any symptoms/signs prior to the episode. Denies any chest pain/shortness of breath/dizziness/cold or warm feeling after the episode. She also mentions that she was started on a new medicine for sleep aid the night before (by her new PCP). Does not recall the name of the sleeping aid medicine. She mentions that she did have CVA in September 2024 for which was in rehab for around a month. Her comorbidities also include hypertension and hyperlipidemia. Reportedly, the patient has history of noncompliance. Cardiology is involved for cardiac aspects of care. While in emergency room, she had stitches to the right forehead. Lying flat in bed and not in acute distress. Stitches in the right forehead is covered by dressing. Bruises to the forehead is seen. No JVD. Mucosa is pink and wet. No carotid bruit. No goiter. Not using accessory muscles of breathing. Lungs are clear to auscultation. Cardiac: Regular, no thrill/gallop. Abdomen is soft. There was no hepatomegaly/mass. Bowel sound is positive. Extremities do not reveal edema. Gross left HP is observed. Past medical history includes hypertension, hyperlipidemia and history of CVA (in September 2024) with left HP. Chart mentions history of diabetes mellitus but patient herself denies such a history. There is a reported history of noncompliance. She is morbidly obese. Creatinine: 0.75 - 0.54 Potassium: 4.2 - 3.8 Troponin (high sensitive): 3 - 5 - 3 D-Dimer: 6.19 Chest x-ray revealed: Impression: 1. No acute cardiopulmonary disease. CT of the head revealed: IMPRESSION: No acute intracranial abnormality. EKG revealed sinus rhythm with nonspecific ST-T changes Tele reveals sinus rhythm Patient is a 69-year-old female who had an episode of loss of consciousness (found herself on the floor) with bruises to the forehead. Presentation is in favor of an episode of syncope. The patient was started on new sleeping aid the night before which could have contributed to the clinical picture. It is of note that the patient did have CVA few months back. Found to have increased D- Dimer Syncope Forehead laceration, status post stitches Hypertension Hyperlipidemia Status post CVA Morbidly obese Baseline poor functional capacity Cardiac suggestion for management: Manage on telemetry Follow-up electrolytes and kidney function tests and correct abnormalities Keep potassium above 4 and magnesium above 2 Awaiting echocardiogram Venous Doppler lower extremities CT angio of the lungs Long-term monitor can be arranged as outpatient Consider Neurology evaluation Further evaluation and management depends on the above and clinical course A total of 55 minutes was spent reviewing the patient record, examining the patient, making a diagnostic and therapeutic plan, discussing this plan with medical personnel, following up on diagnostic studies and following the patient for clinical stability excluding any and all procedures. At least 50% of this time was spent in direct, [id number] contact. Thank you for allowing me to participate in this patient's care. Further recommendations will depend on patient's clinical course. Please do not hesitate to contact me if you have any questions or concerns. This medical document was created using electronic medical record system with [employer] computerized dictation system. Although this document has been carefully reviewed, there may still be some phonetic and typographical errors. These areas are purely typographical due to the imperfection of the software programs, and do not reflect any compromise in the patient's medical care. Plan discussed with: Patient, Other (nurse) GISELE ALMONTE MD Mar 24, 2025 07:47
[2025-03-24] MEDS: ENOXAPARIN SOD 40 MG/0.4 ML SYRINGE SC SCH (08:52)
[2025-03-24] MEDS: ONDANSETRON HCL 4 MG/2 ML VIAL IV PRN (09:44)
--- NOTE | 2025-03-24 10:26 | DVHDS2 ---
Discharge Summary Date of Admission Mar 23, 2025 at 17:26 Date of Discharge: Mar 24, 2025 Admitting Diagnosis Syncope Diabetes, type 2 Hypertension Labs/Diagnostic Data: Laboratory Results Test 03/24/25 04:58 03/23/25 19:01 03/23/25 18:33 03/23/25 13:35 White Blood Count 8.7 10^3/uL (4.4-10.8) Red Blood Count 4.14 10^6/uL (4.0-5.20) Hemoglobin 13.2 g/dL (12.2-16.2) Hematocrit 38.6 % (36.0-46.0) Mean Corpuscular Volume 93.3 fL (80.0-100.0) Mean Corpuscular Hemoglobin 31.9 pg (28.0-32.0) Mean Corpuscular Hemoglobin Concent 34.3 g/dL (32.0-36.0) Red Cell Distribution Width 13.4 % (11.8-14.3) Platelet Count 263 10^3/uL (140-450) Mean Platelet Volume 7.8 fL (6.9-10.8) Neutrophils (%) (Auto) 69.1 % (37.0-80.0) Lymphocytes (%) (Auto) 22.3 % (10.0-50.0) Monocytes (%) (Auto) 6.6 % (0.0-12.0) Eosinophils (%) (Auto) 1.6 % (0.0-7.0) Basophils (%) (Auto) 0.4 % (0.0-2.0) Neutrophils # (Auto) 6.0 10 ^3/uL (1.6-8.6) Lymphocytes # (Auto) 2.0 10 ^3/uL (0.4-5.4) Monocytes # (Auto) 0.6 10 ^3/uL (0-1.3) Eosinophils # (Auto) 0.1 10 ^3/uL (0-0.8) Basophils # (Auto) 0 10 ^3/uL (0-0.2) Nucleated Red Blood Cells 0.1 % Sodium Level 140 mmol/L (136-145) Potassium Level 3.8 mmol/L (3.5-5.1) Chloride Level 103 mmol/L (98-107) Carbon Dioxide Level 26 mmol/L (20-31) Anion Gap 11 (5-15) Blood Urea Nitrogen 9 mg/dL (9-23) Creatinine 0.54 mg/dL (0.550-1.02) Glomerular Filtration Rate Calc 101 mL/min (>90) BUN/Creatinine Ratio 16.7 (10.0-20.0) Serum Glucose 134 mg/dL (74-106) Calcium Level 9.2 mg/dL (8.7-10.4) Total Bilirubin 0.7 mg/dL (0.2-1.0) Aspartate Amino Transferase (AST) 14 U/L (13-40) Alanine Aminotransferase (ALT) 20 U/L (7-40) Alkaline Phosphatase 99 U/L (46-116) Total Protein 7.0 g/dL (5.7-8.2) Albumin 4.1 g/dL (3.2-4.8) Urine Color Light-yellow (Yellow) Urine Clarity Clear (Clear) Urine pH 6.5 (5.0-9.0) Urine Specific [place] 1.008 (1.001-1.035) Urine Protein Negative (Negative) Urine Ketones Negative (Negative) Urine Blood Negative /uL (Negative) Urine Nitrite Negative (Negative) Urine Bilirubin Negative (Negative) Urine Urobilinogen Normal mg/dL (Negative) Urine Leukocyte Esterase Negative /uL (Negative) Urine RBC <1 /hpf (0 - 4) Urine Microscopic WBC < 1 /HPF (0-5) Urine Squamous Epithelial Cells Few /hpf (<5) Urine Bacteria Few /hpf (None Seen) Urine Glucose Normal mg/dL (Normal) D-Dimer, Quantitative 6.19 mg/L FEU (0.0-0.49) Troponin I High Sensitivity 3 ng/L (</=34) Test 03/23/25 10:46 Prothrombin Time 10.0 sec (9.3-11.8) Prothrombin Time INR 0.94 (0.9-1.15) Activated Partial Thromboplast Time 30.2 SEC (24.5-34.5) Other Laboratory Tests 03/24/25 04:58 Brief Hx & Hospital Course: Gwendolyn Lewis, a 69-year-old female with history of stroke, diabetes, hypertension, and hyperlipidemia, presented with a syncopal episode. Her daughter suspected the episode was related to weakness from a recently prescribed sleep aid. The patient acknowledged previous medication non- compliance. She was admitted overnight for evaluation with plans for echocardiogram, orthostatic vitals, hemoglobin A1c, insulin sliding scale, and lipid panel. Gwendolyn Lewis is a 69-year-old female with history of stroke, diabetes, hypertension, and hyperlipidemia presenting with syncopal episode, possibly related to recently prescribed sleep aid. Syncope Assessment: Patient experienced syncopal episode with daughter suspecting possible weakness from recently prescribed sleep aid. Patient has history of stroke and previous medication non-compliance. Given cardiac risk factors including diabetes, hypertension, and hyperlipidemia, cardiac etiology requires evaluation. Plan: - Admit overnight for syncope-Monitor EKG - Order echocardiogram- Ejection fraction was preserved with no valvular disease - Obtain orthostatic vitals-Vitals were stable Diabetes mellitus Assessment: Patient has established diabetes with history of medication non- compliance. Plan: - Order hemoglobin A1c - Insulin sliding scale Hyperlipidemia Assessment: Patient has established hyperlipidemia requiring monitoring. Plan: - Order lipid panel Hypertension Assessment: Patient has established hypertension. Plan:Continue home blood pressure medication's Patient was admitted and observed. Echocardiogram was done. Patient was seen by cardiology. Patient was started on home blood pressure medication. Orthostatic vitals were taken. Patient was related to noncompliance with medication's. Patient was apparently taking sleep aids that were previously discontinued by her [facility]. Condition at Discharge: Good Final Diagnosis/Problems List Syncope Diabetes, type 2 Hypertension Discharge Disposition: Home SNF Discharge Will this Physician continue t: No Discharge Instruct/Medications Diet: Cardiac 2g Na,low cholest Activity: No Restrictions, As Tolerated Follow Up/Referral: pcp No Active Prescriptions or Reported Meds 30 Discharge Statement: "Patient was advised to return to the ER or call 911 if any headaches, dizziness, shortness of breath, chest pain, abdominal pain, bleeding, fevers, or worsening of medical condition. Patient was counseled about treatment plan, medications, possible side effects, patientverbalized understanding. All questions were answered to the best of my ability. This discharge took greater then 30 minutes in planning, reviewing documentation, counseling the patient, and discussing with other team members." ASSESSMENT ASSESSMENT Hospital Course Patient was admitted for sinkable episode. Orthostatic vitals were taken. Patient was seen in evaluated by cardiology. Echocardiogram was done. Syncopal episode was related to sleeping aids that were reportedly discontinued by provider. However, patient had taken them and had side effects from medication. Patient was informed that the medication was discontinued and she was instructed to follow up with her primary care provider in one week. Assessment MOO RICKETTS NP Mar 24, 2025 10:26
--- NOTE | 2025-03-24 11:30 | DVH ---
Bilateral lower extremity venous duplex Clinical History: edema Comparison: None Findings: Duplex Doppler evaluation of the deep venous systems of both lower extremities from the common femora l veins to the popliteal veins including color Doppler and spectral/pulsed waveform analysis was perf ormed. RIGHT SIDE: The common femoral vein demonstrates appropriate compressibility and waveform variability. There is compressibility/patency of the great saphenous vein at the proximal thigh. The femoral vein demonstrates appropriate compressibility and waveform variability. The deep femoral vein demonstrates appropriate compressibility and waveform variability. The popliteal vein demonstrates appropriate compressibility and waveform variability. There is normal compressibility at the tibioperoneal trunk. LEFT SIDE: The common femoral vein demonstrates appropriate compressibility and waveform variability. There is compressibility/patency of the great saphenous vein at the proximal thigh. The femoral vein demonstrates appropriate compressibility and waveform variability. The deep femoral vein demonstrates appropriate compressibility and waveform variability. The popliteal vein demonstrates appropriate compressibility and waveform variability. There is normal compressibility at the tibioperoneal trunk. IMPRESSION: No right or left femoropopliteal venous thrombosis. If clinical concern/symptoms persist or worsen, short-interval follow-up study is suggested. END IMPRESSION:
[2025-03-24] MEDS ORDERED: IOHEXOL 350 MG/ML 100ML IJ ONE (13:43)
--- NOTE | 2025-03-24 14:21 | DVH ---
EXAM: CT CT ANGIO CHEST CONTRAST HISTORY: POSSIBLE PE TECHNIQUE: CT angiogram was performed. CT scans at this facility use dose modulation, iterative recon struction, and/or weight based dosing when appropriate to reduce radiation dose to as low as reasonab ly achievable. Coronal and sagittal reformations and maximum intensity projection images were created from the transaxial source data by the anesthesiology technologist and workstation, as well as 3-D volume render ed images with MIPs. COMPARISON: None FINDINGS: [LOWER NECK]: Unremarkable [LYMPH NODES/MEDIASTINUM]: No abnormal lymph nodes by CT size criteria [CARDIOVASCULAR]: Normal cardiac size. No pericardial effusion. No aneurysmal dilatation of the great vessels. No significant coronary artery calcifications. [PULMONARY ARTERIES]: No pulmonary arterial filling defect. Normal caliber of the main pulmonary megahan ry. No evidence of elevated right heart pressures. [UPPER ABDOMEN]: Unremarkable. [MUSCULOSKELETAL]: No acute fracture or aggressive focal osseous lesion. Multilevel degenerative sheridan ge of the visualized spine. [CHEST WALL]: Unremarkable. [LUNG PARENCHYMA/PLEURAL SPACE]: Decreased lung volumes No pleural effusion or pneumothorax. atelecta sis in bilateral lung bases. No bronchiectasis IMPRESSION: 1. No CTA evidence of pulmonary embolism.
--- NOTE | 2025-03-24 19:03 | DVHSR ---
APPROVED REPORT EXAM: Two-dimensional and M-mode echocardiogram with Doppler and color Doppler. Blood Pressure: 144/77 mmHg INDICATION Syncope RISK FACTORS Height: 5'2", Weight: 149 DIMENSIONS LVDd4.4 (3.8-5.7cm)LA (2D) (1.9-4.0cm)Aortic Root (2.0-3.7cm) LVDs2.6 (2.5-4.0cm)LA (MM) (1.9-4.0cm)Aortic Cusp Exc (1.5-2.0cm) EF (%) 72.0 (55-70%)Rt. Atrium (1.9-4.0cm)Asc. Aorta cm IVSd0.8 (0.7-1.1cm)RV (D) (1.8-2.4cm) Mitral Valve MitralMitral Stenosis E/A ratio0.02D MVAcm2 Other Information Quality : Technically LimitedRhythm : Technically limited study due to body habitus and pt position. Conclusion Technically limited study secondary to poor acoustic windows. Left ventricle: Left ventricle was normal-sized with normal systolic function. LVEF was around 55%. There was no gross wall motion abnormality. Right ventricle was normal-sized with normal systolic function. Both atria were normal-sized. Aortic valve was trileaflet. There was no aortic insufficiency/stenosis. There was mild tricuspid a nd mitral regurgitation. Pulmonary valve was not well visualized. As there was no good tricuspid regurgitation jet, right ventricular systolic pressure could not be es timated. There was no echocardiographic evidence for pulmonary hypertension. IVC was normal-sized with normal respiratory variation.
--- NOTE | 2025-03-28 09:43 | ECG ---
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
== END 2025-03-24 20:04 | disposition home or self-care (01) ==
LOC: ER 10:03 → OVERFLOW 17:26 → INTOOBSV 17:26 → TELE-CENTR 21:03
PROVIDERS: ADMIT Nurse Practitioner; ATTEND Nurse Practitioner
DX: S01.81XA Laceration without foreign body of other part of head, initial encounter (principal); R55 Syncope and collapse; E11.9 Type 2 diabetes mellitus without complications; I10 Essential (primary) hypertension; D84.9 Immunodeficiency, unspecified; E78.5 Hyperlipidemia, unspecified; E66.01 Morbid (severe) obesity due to excess calories; Z86.73 Personal history of transient ischemic attack (TIA), and cerebral infarction without residual deficits; Z88.0 Allergy status to penicillin; Z68.27 Body mass index [BMI] 27.0-27.9, adult; Z79.899 Other long term (current) drug therapy; Z87.891 Personal history of nicotine dependence; W18.39XA Other fall on same level, initial encounter; Y93.89 Activity, other specified; Y92.010 Kitchen of single-family (private) house as the place of occurrence of the external cause; Y99.8 Other external cause status
CPT/HCPCS: 12011; 36415; 70450; 71045; 71275; 80048; 80053; 81001; 84484; 85025; 85379; 85610; 85730; 93005; 93306; 93970; 96361; 96372; 96374; 96375; 99291; G0378; J1650; J2270; J2405; Q9967